=== PATIENT | male | born 1965 | race Caucasian/White ===

== ENCOUNTER 2016-11-23 08:16 | Emergency (ER) | payer MEDICAID ==
[~2016-11-23 08:16] MED LIST: ALBUTEROL INHALER IH; ASA CHILDREN'S81 MG PO; CENTRUM SILVER1 EAC1 PO; FISH OIL PO; HYDROCODONE 5MG/5 MG PO; LIPITOR80 MG PO; METOPROLOL TART25 MG PO; VASOTEC DPS10 MG PO
--- NOTE | 2016-11-26 12:33 | ER ---
ADMIT: 11/23/2016 RM/LOC: ER [facility] MR#: [id number] [address] [id number] MELLO TURNER [address] [place] [address] Emergency Room Report SEX: M AGE: 51 : 1965 DATE: 11/23/2016 ADDENDUM: A 51-year-old white male coming in with abdominal pain, kind of generalized in nature. CBC, chemistry, and lipase all negative. He has no chest pain with this. He has had this before. His white count was 4.4, this could all be viral. At this time, I just gave him like 30 of Toradol IV. He is much improved with that. I did put him on Bentyl 20 p.o. q.6 p.r.n. spasm, clear liquids times about 24 hours, and he needs to follow up with Dr. Gonzalez within a week for recheck just to make sure he is doing well. He does have other medical problems including cardiac disease, hypertension, hyperlipidemia, a little bit of asthma as well. CONDITION ON DISCHARGE: Improved. Ollie Badillo MD/ tata JOB #: [id number] CC: Ollie Badillo MD, Attending Physician Joana Gonzalez MD, Family Physician
== END 2016-11-23 10:55 | disposition home or self-care (01) ==
LOC: ER 08:16
DX: R10.84 Generalized abdominal pain (principal); J45.909 Unspecified asthma, uncomplicated; I25.10 Atherosclerotic heart disease of native coronary artery without angina pectoris; I25.2 Old myocardial infarction; I10 Essential (primary) hypertension; E78.5 Hyperlipidemia, unspecified; Z88.0 Allergy status to penicillin; Z79.82 Long term (current) use of aspirin

== ENCOUNTER 2017-02-06 12:03 | Emergency (ER) | payer MEDICAID ==
--- NOTE | 2017-02-07 08:23 | ER ---
ADMIT: 02/06/2017 RM/LOC: ER [facility] MR#: [id number] [facility] [address] [place], [place] [address] MELLO TURNER [address] [place] [address] Emergency Room Report SEX: M AGE: 51 : 1965 DATE: 02/06/2017 TIME: 1203 hours. PRIMARY CARE: Joana Gonzalez MD Please refer to my T-sheet for complete H and P. HISTORY OF PRESENT ILLNESS: Briefly, the patient is a 51-year-old that has a known history of coronary disease. He has had an DE and a stent. He states that he was moving a lot of stuff. They have been moving yesterday. He is hurt in between his shoulder blades and the back of his neck. He has chronic neck pain. Also, he said he was concerned it could be his heart this time. He does not smoke and he rates it 3/10 and wanted it evaluated. PHYSICAL EXAMINATION: VITAL SIGNS: Vital signs here all stable. Sats 100%. HEENT: He has a little bit of reproducible tenderness in the base of his neck posteriorly, but no other findings, otherwise exam here is essentially normal. EMERGENCY DEPARTMENT COURSE: EKG was sinus rhythm, rate 73, no changes. CBC normal. Chemistries normal except glucose 166, troponin was negative and he was reassured and ready for discharge. ASSESSMENT: 1. Atypical chest pain. 2. Chronic neck pain. PLAN: Continue current care. Follow up with Dr. Gonzalez this week. Manuel Dinh MD/ tata JOB #: [id number] CC: Manuel Dinh MD, Attending Physician Joana Gonzalez MD, Family Physician Joana Gonzalez MD
== END 2017-02-06 13:40 | disposition home or self-care (01) ==
LOC: ER 12:03
DX: R07.89 Other chest pain (principal); M54.2 Cervicalgia; G89.29 Other chronic pain; I10 Essential (primary) hypertension; E78.5 Hyperlipidemia, unspecified; I25.10 Atherosclerotic heart disease of native coronary artery without angina pectoris; J45.909 Unspecified asthma, uncomplicated; Z95.5 Presence of coronary angioplasty implant and graft; Z88.0 Allergy status to penicillin; Z79.82 Long term (current) use of aspirin; Z79.899 Other long term (current) drug therapy

== ENCOUNTER → 2017-02-23 | Outpatient (CLI) | payer MEDICAID | END | disposition home or self-care (01) | LOC: RAD.S 10:30 | DX: Z77.120 Contact with and (suspected) exposure to mold (toxic) (principal) ==